=== PATIENT | female | born 1975 | race Caucasian/White ===

== ENCOUNTER 2023-07-30 11:03 | Emergency (ER) | payer BC, SELFPAY ==
[2023-07-30 11:19] VITALS: BP 121/51; PULSE 79; RESP 20; TEMP 36.8; O2SAT 100
--- NOTE | 2023-07-30 12:37 | ED.GENADULT ---
HPI - General Adult General Chief complaint: Urogenital-Female Stated complaint: Female Urogenital Time Seen by Provider: 07/30/23 12:37 Source: patient Mode of arrival: ambulatory Limitations: no limitations History of Present Illness HPI narrative: Patient is a 47-year-old patient who is having complaints of painful urination, urinary frequency, lower abdominal pain and pressure, lower back pain since . patient has been taking Tylenol and ibuprofen around the clock she says so she is not sure if she has had a fever. patient reports Tylenol and ibuprofen have not been working for the pain. Symptoms have been increasing in severity since . Related Data Home Medications Medication Instructions Recorded Confirmed mirtazapine 30 mg tablet 30 mg PO HS 07/30/23 07/30/23 Allergies Allergy/AdvReac Type Severity Reaction Status Date / Time No Known Allergies Allergy Verified 07/30/23 12:33 Review of Systems Review of Systems: CONSTITUTIONAL: Denies fever, chills, or sweats. EYES: Denies visual changes, redness, or discharge. ENT: Denies rhinorrhea, congestion, sore throat, or otalgia. CARDIOVASCULAR: Denies chest pain, palpitations, or edema. RESPIRATORY: Denies cough or dyspnea. GASTROINTESTINAL: positive lower abdominal pain and pressure, negative nausea, vomiting, or diarrhea. GENITOURINARY: positive dysuria, urinary frequency and urgency, and negative hematuria. SKIN: Denies rash or itching. MUSCULOSKELETAL: positive lower back pain, negative joint pain, or myalgia. NEUROLOGIC: Denies headache, numbness, or weakness. PSYCHIATRIC: Denies anxiety or depression. PMFSH Comments AT THE TIME OF MY SIGNATURE I AGREE WITH NURSING PAST MEDICAL HISTORY, SURGICAL, SOCIAL, AND FAMILY HISTORY. THERE IS NO RELEVANT FAMILY HISTORY PERTINENT TO THE PRESENTING COMPLAINT. Exam Narrative: GENERAL: Well-appearing, well-nourished, and in no acute distress. HEAD: Normocephalic, atraumatic. EYES: PERRLA and EOMI. ENT: Nares clear, no rhinorrhea or epistaxis. Mucous membranes moist. NECK: Supple. No lymphadenopathy CHEST: Clear to auscultation. No respiratory distress. HEART: Regular rate and rhythm. No murmur heard. Normal peripheral pulses. ABDOMEN: Soft, nontender, nondistended, normal active bowel sounds. positive suprapubic pain on palpation. positive bilateral CVA tenderness. EXTREMITIES: Normal range of motion. No edema. SKIN: Warm, dry, no rash. NEURO: No focal deficits. Alert and oriented x3. Course Course Level of Care: Express Care Visit Vital Signs Vital signs: Vital Signs Temperature 36.8 C 07/30/23 11:19 Pulse Rate 79 07/30/23 11:19 Respiratory Rate 20 07/30/23 11:19 Blood Pressure 121/51 L 07/30/23 11:19 Pulse Oximetry 100 07/30/23 11:19 Oxygen Delivery Room Air 07/30/23 11:19 Temperature 36.8 C 07/30/23 11:19 Pulse Rate 79 07/30/23 11:19 Respiratory Rate 20 07/30/23 11:19 Blood Pressure 121/51 L 07/30/23 11:19 Pulse Oximetry 100 07/30/23 11:19 Oxygen Delivery Room Air 07/30/23 11:19 vital signs reviewed Medical Decision Making MDM Narrative Medical decision making narrative: Patient's urine dip came back negative however based on patient's symptoms and physical findings, informed patient that we will start antibiotics and send urine off for culture. Differential Diagnosis Differential Diagnosis: differential diagnosis: Uncomplicated lower UTI, uncomplicated UTI, pyelonephritis. Vital Signs Vital Signs: Vital Signs Temperature 36.8 C 07/30/23 11:19 Pulse Rate 79 07/30/23 11:19 Respiratory Rate 20 07/30/23 11:19 Blood Pressure 121/51 L 07/30/23 11:19 Pulse Oximetry 100 07/30/23 11:19 Oxygen Delivery Room Air 07/30/23 11:19 Temperature 36.8 C 07/30/23 11:19 Pulse Rate 79 07/30/23 11:19 Respiratory Rate 20 07/30/23 11:19 Blood Pressure 121/51 L 07/30/23 11:19 Pulse Oximetry 10
== END 2023-07-30 12:57 | disposition home or self-care (01) ==
PROVIDERS: Emergency Provider Nurse Practitioner Family
DX: R30.0 Dysuria (principal)
CPT/HCPCS: 81003; 81025; 87086; 87088; 99203; G0463